=== PATIENT | female | born 1980 | race Caucasian/White ===

== ENCOUNTER 2018-11-24 13:26 | Emergency (ER) | payer OTHER, SELFPAY ==
[2018-11-24 13:37] VITALS: BP 113/71; PULSE 78; RESP 12; TEMP 36.7; O2SAT 98
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
[2018-11-24] MEDS: Tetanus & Diphtheria Tox,ADULT 0.5 ML VIAL IM (13:53)
[2018-11-24 14:15] VITALS: BP 113/71; PULSE 78; RESP 12; TEMP 36.7; O2SAT 98
== END 2018-11-24 14:15 | disposition home or self-care (01) ==
PROVIDERS: Emergency Provider Emergency Medicine
DX: S81.812A Laceration without foreign body, left lower leg, initial encounter (principal); W45.8XXA Other foreign body or object entering through skin, initial encounter
CPT/HCPCS: 12002; 90471